=== PATIENT | female | born 1995 | race Caucasian/White ===

== ENCOUNTER 2022-10-29 06:56 | Inpatient (IN) | payer OTHER ==
[2022-10-29] MEDS ORDERED: Tranexamic Acid 1,000 MG in Sodium Chloride 0.9% 100 ML IV PRN ×2 (07:19→14:14)
[2022-10-29] MEDS ORDERED: Butorphanol 1 MG/ML SDV IVPUSH PRN (07:19)
[2022-10-29] MEDS ORDERED: Sodium Chloride 0.9% 2.5 ML Syringe FLUSH PRN (07:19)
[2022-10-29] MEDS ORDERED: Methylergonovine 0.2 MG/1 ML Amp IM PRN ×2 (07:19→14:14)
[2022-10-29] MEDS ORDERED: Sodium Chloride 0.9% 20 ML SDV IV PRN (07:19)
[2022-10-29] MEDS ORDERED: Sodium Chloride 0.9% 10 ML Syringe FLUSH PRN (07:19)
[2022-10-29] MEDS ORDERED: Misoprostol 200 MCG Tab PO PRN (07:19)
[2022-10-29] MEDS ORDERED: Water For Irrigation,Sterile 1,000 ML Container IRR PRN (07:19)
[2022-10-29] MEDS ORDERED: Carboprost Tromethamine 250 MCG/1 mL Vial IM PRN (07:19)
[2022-10-29] MEDS ORDERED: Lidocaine 1% 50 ML MDV INJECT PRN (07:19)
[2022-10-29] MEDS: Lactated Ringers 1,000 ML IV SCH ×2 (07:25→10:56)
[2022-10-29] MEDS ORDERED: Oxytocin/0.9 % Sodium Chloride 30 UNIT/500 ML BAG IV SCH (07:30)
[2022-10-29] MEDS ORDERED: Dexmedetomidine 200 MCG/2 ML SDV ONE (07:51)
[2022-10-29 07:52] LABS: HEMATOCRIT 38.5 % (36.0-46.0); HEMOGLOBIN 13.3 g/dL (12.0-16.0); MEAN CORPUSCULAR HEMOGLOBIN 32.2 pg (27.0-32.0); MEAN CORPUSCULAR HGB CONC 34.5 g/dL (31.0-37.0); MEAN CORPUSCULAR VOLUME 93.2 fL (80.0-98.0); RED BLOOD CELL COUNT 4.13 M/uL (4.30-5.90); WHITE BLOOD CELL COUNT,WBC 12.92 K/uL (4.0-11.0)
[2022-10-29] MEDS ORDERED: Lidocaine 2% with EPINEPHrine 1:200,000 20 ML SDV ONE (07:52)
[2022-10-29] MEDS ORDERED: Ropivacaine/PF 400 MG/200 ML PCA ONE (07:52)
[2022-10-29] MEDS ORDERED: Phenylephrine HCl 0.5 MG/5 ML AMP ONE (07:52)
[2022-10-29] MEDS ORDERED: ePHEDrine 50 MG/ML SDV IVPUSH PRN ×2 (08:04)
[2022-10-29] MEDS ORDERED: Phenylephrine HCl 0.5 MG/5 ML AMP IVPUSH PRN (08:04)
[2022-10-29] MEDS ORDERED: Ropivacaine HCl/PF 400 MG in Premix Bag 1 BAG EPIDUR SCH (08:15)
[2022-10-29] MEDS ORDERED: Lanolin 100% Cream 7 GM Tube TOP PRN (14:14)
[2022-10-29] MEDS ORDERED: Docusate Sodium 100 MG Cap PO PRN (14:14)
[2022-10-29] MEDS ORDERED: Witch Hazel Medicated Pads 40/Jar TOP PRN (14:14)
[2022-10-29] MEDS ORDERED: Ibuprofen 800 MG Tab PO PRN (14:14)
[2022-10-29] MEDS ORDERED: Acetaminophen 500 MG Tab PO PRN ×2 (14:14)
[2022-10-29] MEDS ORDERED: Bisacodyl 10 MG Supp RECTAL PRN (14:14)
[2022-10-29] MEDS ORDERED: Ibuprofen 400 MG Tab PO PRN (14:14)
[2022-10-29] MEDS ORDERED: Benzocaine/Menthol 20%-0.5% Spray 78 GM Cannister TOP PRN (14:14)
[2022-10-29 14:30] LABS: PH,UMBILICAL ARTERIAL 7.174 (7.18-7.38); PH,UMBILICAL VENOUS 7.229 (7.25-7.45)
[2022-10-29] MEDS ORDERED: Sodium Chloride 0.9% 100 ML ONE (16:08)
[2022-10-30 06:54] LABS: HEMATOCRIT 34.7 % (36.0-46.0); HEMOGLOBIN 11.5 g/dL (12.0-16.0)
[2022-10-30] MEDS ORDERED: Prenatal Multivitamin with Calcium/Folic Acid/Iron Tab PO SCH (09:00)
[2022-10-30] MEDS ORDERED: Measles, Mumps & Rubella Vaccine 0.5 ML SDV SUBCUT ONE (12:23)
== END 2022-10-30 18:50 | disposition home or self-care (01) | DRG 807 ==
LOC: MW.OB 06:56 → MW.OBCHECK 06:56 → MW.OB 07:19 → OBSVTOIN 14:14 → MW.OB 20:55
PROVIDERS: ADMIT Obstetrics & Gynecology; ATTEND Obstetrics & Gynecology
PROC: 10E0XZZ Delivery of Products of Conception, External Approach (ICD-10-PCS; principal; 2022-10-28)
PROC: 3E0R3BZ Introduction of Anesthetic Agent into Spinal Canal, Percutaneous Approach (ICD-10-PCS; 2022-10-28)
PROC: 00HU33Z Insertion of Infusion Device into Spinal Canal, Percutaneous Approach (ICD-10-PCS; 2022-10-28)
PROC: 3E033VJ Introduction of Other Hormone into Peripheral Vein, Percutaneous Approach (ICD-10-PCS; 2022-10-28)
DX: O36.5930 Maternal care for other known or suspected poor fetal growth, third trimester, not applicable or unspecified (principal); Z37.0 Single live birth; O42.02 Full-term premature rupture of membranes, onset of labor within 24 hours of rupture; O76 Abnormality in fetal heart rate and rhythm complicating labor and delivery; O43.813 Placental infarction, third trimester; Z3A.39 39 weeks gestation of pregnancy; Z86.16 Personal history of COVID-19
CPT/HCPCS: 01967; 36415; 51702; 59025; 59409; 82803; 84112; 85014; 85018; 85027; 86592; 86850; 86900; 86901; 90471; 90707; A9270-GY; J2370; J2590; J2795; J3490; J7120

== ENCOUNTER 2023-02-09 09:53 | Day surgery (SDC) | payer OTHER ==
[~2023-02-09 09:53] MED LIST: Albuterol 0.083% 2.5 MG/3 ML Neb Soln NEB PRN; HYDROmorphone 1 MG/ML Syringe IVPUSH PRN; Lactated Ringers 1,000 ML IV SCH; Metoclopramide 10 MG/2 ML SDV IVPUSH PRN; Morphine 2 MG/ML SYRINGE IVPUSH PRN; Naloxone 0.4 MG/ML SDV IVPUSH PRN; Ondansetron 4 MG/2 ML SDV IVPUSH PRN; droPERidol 5 MG/2 ML SDV IVPUSH PRN; fentaNYL 50 MCG/ML SDV IVPUSH PRN
[2023-02-09] MEDS ORDERED: Ferric Subsulfate Topical Soln 8 GM (8 ML) Bottle ONE (09:57)
[2023-02-09] MEDS ORDERED: Lidocaine 1% with EPINEPHrine 1:100,000 50 ML MDV ONE (09:58)
[2023-02-09] MEDS ORDERED: Iodine/Potassium Iodide 5% Solution 14 ML Bottle ONE (09:58)
[2023-02-09] MEDS ORDERED: fentaNYL 250 MCG/5 ML SDV ONE (10:34)
[2023-02-09] MEDS ORDERED: Propofol 200 MG/20 ML SDV ONE (10:35)
[2023-02-09] MEDS ORDERED: propofoL 50 ML ONE (10:35)
[2023-02-09] MEDS ORDERED: Ketorolac 30 MG/ML SDV ONE (10:44)
[2023-02-09] MEDS ORDERED: Glycopyrrolate 0.2 MG/ML SDV ONE (10:44)
[2023-02-09] MEDS ORDERED: Ondansetron 4 MG/2 ML SDV ONE (10:44)
[2023-02-09] MEDS ORDERED: Dexamethasone 4 MG/ML 5 ML MDV ONE (10:44)
== END 2023-02-09 12:02 | disposition home or self-care (01) ==
LOC: MW.SDS 09:53
PROVIDERS: ATTEND Obstetrics & Gynecology
DX: N87.0 Mild cervical dysplasia (principal); N72 Inflammatory disease of cervix uteri; F32.A Depression, unspecified; G43.909 Migraine, unspecified, not intractable, without status migrainosus; E66.9 Obesity, unspecified; Z79.899 Other long term (current) drug therapy; Z88.1 Allergy status to other antibiotic agents; Z87.891 Personal history of nicotine dependence; Z68.33 Body mass index [BMI] 33.0-33.9, adult
CPT/HCPCS: 57460; 81025; A9270; J0131; J1100; J1885; J2405; J2704; J3010; J3490; J7120